=== PATIENT | male | born 1985 | race Caucasian/White ===

== ENCOUNTER 2016-11-21 02:36 | Emergency (ER) | payer OTHER ==
[~2016-11-21] VITALS: Ht 180.3 cm; Wt 78.4 kg
[2016-11-21 03:04] LABS: HEMATOCRIT 47.4 % (38.0-50.0); MCH 29.5 PG (29.0-34.0); MEAN PLAT.VOLUME 10.9 uM^3 (9.0-12.4); PLATELET COUNT 202 K/uL (156-360); RBC DIS.WIDTH-CV 12.9 % (11.8-14.6); RBC DIS.WIDTH-SD 40.5 % (39-53); RED BLOOD COUNT 5.45 M/uL (4.00-5.50); WHITE BLOOD COUNT 10.4 K/uL (4.1-10.2)
[2016-11-21 03:14] LABS: CHLORIDE 104 mEq/L (99-109); POTASSIUM 4.1 mEq/L (3.7-5.4); SODIUM 137 mEq/L (136-147)
[2016-11-21 03:17] LABS: GLUCOSE 97 mg/dL (70-99)
[2016-11-21 03:18] LABS: ANION GAP 8 MEQ/L (2-14); TOTAL BILIRUBIN 0.4 mg/dL (0.0-1.0)
[2016-11-21 03:20] LABS: ALKALINE PHOSPHATASE 71 IU/L (3-129)
[2016-11-21 03:21] LABS: UREA NITROGEN (BUN) 19 mg/dL (9-23)
[2016-11-21 03:29] LABS: GFR ESTIMATE (CALCULATED) > 59 mL/min/
[2016-11-21 04:22] LABS: ADD MIUA? YES; BILIRUBIN NEGATIVE; BLOOD SMALL; COLOR STRAW ((YELLOW)); GLUCOSE (STRIP) NEGATIVE; KETONES NEGATIVE; LEUKOCYTES NEGATIVE; NITRITE NEGATIVE; PROTEIN (STRIP) NEGATIVE; SPECIFIC GRAVITY 1.008 (1.000-1.030); UROBILINOGEN 0.2 MG/DL (0.2-1.0)
[2016-11-21 04:27] LABS: BACTERIA NONE SEEN /HPF; EPITHELIAL CELLS NONE SEEN /HPF; MUCUS TRACE /LPF; RED BLOOD CELLS 0-5 /HPF (0-5); UCUL ADDED? NO; WHITE BLOOD CELLS 0-5 /HPF (0-5)
[2016-11-21] MEDS ORDERED: PERCOCET 5/31 TABLET PO (05:21)
[2016-11-21] MEDS ORDERED: FLOMAX0.4 MG PO (05:21)
[2016-11-21] MEDS ORDERED: MOTRIN600 MG PO (05:21)
[2016-11-21] MEDS ORDERED: ZOFRAN ODT4 MG PO (05:21)
[2016-11-21 05:44] VITALS: BP 123/73
== END 2016-11-21 05:46 | disposition home or self-care (01) ==
LOC: EME 02:36
DX: N13.2 Hydronephrosis with renal and ureteral calculous obstruction (principal); F17.200 Nicotine dependence, unspecified, uncomplicated
CPT/HCPCS: 74176; 80053; 81003; 85027; 99281; 99284